=== PATIENT | male | born 1940 | race Caucasian/White ===

== ENCOUNTER 2017-04-01 10:55 | Emergency (ER) | payer OTHER, BC ==
[2017-04-01 11:02] VITALS: BP 131/59; PULSE 60; TEMP 97.6; BMI 24.0
[2017-04-01] MEDS ORDERED: KETOROLAC TROMETHAMINE 30 MG/1 ML VIAL IM ONE (11:33)
--- NOTE | 2017-04-01 11:38 | PDOC ---
History of Present Illness - General Chief Complaint: Injury Stated Complaint: FALL/BACK PAIN Time Seen by Provider: 04/01/17 11:18 History Source: Patient Exam Limitations: No Limitations - History of Present Illness Initial Comments: 04/01/17 11:40 This 76-year-old male past medical history of hypertension, prostate CA status post seeds, a flutter who presents to the emergency department with back pain status post slip and fall down 4 wooden steps on 03/31/17. Patient states she was walking down the steps into his basement with some now on the sole issue. While fpc down the steps he slipped and fell feetfirst landing on his back striking the stairs across both shoulders and midway down the back. Patient states he then slid down 3-4 steps before stopping himself before completing the entire flight of stairs. Patient states she was able to stand up and walk immediately after the fall. He states that overnight the pain has gotten worse in his right shoulder, upper back, and lower back. He denies any numbness or tingling to extremities, genitalia or rectum. Denies any urinary or fecal incontinence. Patient does report weakness in his right hand and decreased range of motion of his right shoulder. Patient has minimal pain in his left shoulder but has full range of motion. Denies any fevers, chills, chest pain, shortness of breath, nausea, vomiting. Occurred: reports: yesterday Past History - Past Medical History Allergies/Adverse Reactions: Allergies Allergy/AdvReac Type Severity Reaction Status Date / Time No Known Allergies Allergy Verified 04/01/17 11:02 Home Medications: Ambulatory Orders Amlodipine Besylate [Norvasc -] 5 mg PO DAILY 04/01/17 Apixaban [Eliquis] 5 mg PO BID 04/01/17 Atorvastatin Ca [Lipitor] 10 mg PO HS 04/01/17 Chlorthalidone 12.5 mg PO DAILY 04/01/17 Losartan Potassium 50 mg PO DAILY 04/01/17 Metoprolol Succinate 25 mg PO DAILY 04/01/17 Oxycodone HCl 5 mg PO Q6H PRN #15 tablet MDD 4 04/01/17 Tamsulosin HCl [Flomax] 0.4 mg PO DAILY 04/01/17 Cancer: Yes (PROSTATE) COPD: No HTN: Yes Hypercholesterolemia: Yes - Suicide/Smoking/Psychosocial Hx Smoking History: Never smoked Hx Alcohol Use: Yes (SOCIAL) Drug/Substance Use Hx: No Substance Use Type: None Review of Systems - Review of Systems Is the patient limited Romanian proficient: No Constitutional: No: Symptoms Reported HEENTM: No: Symptoms Reported Respiratory: No: Symptoms reported Cardiac (ROS): No: Symptoms Reported ABD/GI: No: Symptoms Reported : No: Symptoms Reported Musculoskeletal: Yes: See HPI Integumentary: No: Symptoms Reported Neurological: No: Symptoms reported *Physical Exam - Vital Signs Last Vital Signs Temp Pulse Resp BP Pulse Ox 97.6 F 60 20 131/59 99 04/01/17 10:58 04/01/17 10:58 04/01/17 10:58 04/01/17 10:58 04/01/17 10:58 - Physical Exam General Appearance: No: Apparent Distress HEENT: positive: Normal ENT Inspection, Normal Voice, TMs Normal Neck: positive: Trachea midline, Supple Respiratory/Chest: positive: Lungs Clear, Normal Breath Sounds. negative: Chest Tender, Respiratory Distress, Accessory Muscle Use Cardiovascular: positive: Regular Rhythm, Regular Rate, S1, S2. negative: Edema Gastrointestinal/Abdominal: positive: Normal Bowel Sounds, Soft. negative: Tender Musculoskeletal: positive: Normal Inspection, CVA Tenderness (R) Extremity: positive: Normal Capillary Refill, Normal Inspection. negative: Normal Range of Motion (right shoulder) Integumentary: positive: Normal Color, Dry, Warm Neurologic: positive: guide delegate II-XII NML intact, Fully Oriented, Alert, Normal Mood/ Affect, Normal Response. negative: Motor Strength 5/5 (3/5 strength right contract accountant) ED Treatment Course - LABORATORY CBC & Chemistry Diagram: 04/01/17 12:15 04/01/17 12:15 Medical Decision Making - Medical Decision Making 04/01/17 11:44 A/P: This 76-year-old male past medical history of hypertension, prostate CA status post seeds, a flutter who presents to the emergency department with back pain status post slip and fall down 4 wooden steps on 03/31/17. Patient states she was walking down the steps into his basement with some now on the sole issue. While fpc down the steps he slipped and fell feetfirst landing on his back striking the stairs across both shoulders and midway down the back. Patient states he then slid down 3-4 steps before stopping himself before completing the entire flight of stairs. Patient states she was able to stand up and walk immediately after the fall. He states that overnight the pain has gotten worse in his right shoulder, upper back, and lower back. He denies any numbness or tingling to extremities, genitalia or rectum. Denies any urinary or fecal incontinence. Patient does report weakness in his right hand and decreased range of motion of his right shoulder. Patient has minimal pain in his left shoulder but has full range of motion. Denies any fevers, chills, chest pain, shortness of breath, nausea, vomiting, head trauma or loss of consciousness. A& O 3. Examination of the temporal membranes is within normal limits. No septal hematomas. There is no evidence of trauma to the head. Cranial nerves 2 through 12 grossly intact. Gait steady without ataxia. Lungs clear to auscultation bilaterally. RRR. S1 and S2 present. No and,, G. Palpation of the spine reveals no bony tenderness or deformity or step off. Patient with tenderness over his right flank. Decreased range of motion to the right shoulder able to range further passively. Differential diagnosis include peritoneal bleed, Musculo-skeletal pain, fractures of spine, scapula, or shoulder area Given the patient is taking anticoagulant therapy as result of his a flutter I will perform a CAT scan of the abdomen with contrast to evaluate for retroperitoneal bleed. I'll perform x-rays of the patient's right shoulder. I' ll place an IV collect CBC, BMP and give the patient 30 mg of Toradol IV push. I will transfer patient to the main emergency department for continued evaluation. Sign out given to MD Villegas. *DC/Admit/Observation/Transfer Diagnosis at time of Disposition: Elevated serum creatinine Scapula fracture Qualifiers: Encounter type: initial encounter Scapula location: coracoid process Fracture type: closed Fracture alignment: nondisplaced Laterality: right Qualified Code(s ): S42.134A - Nondisplaced fracture of coracoid process, right shoulder, initial encounter for closed fracture - Discharge Dispostion Disposition: HOME Condition at time of disposition: Stable - Prescriptions Prescriptions: Oxycodone HCl 5 mg PO Q6H PRN #15 tablet MDD 4 PRN Reason: Pain - Referrals Referrals: STAFF,NOT ON [Primary Care Provider] - - Patient Instructions Printed Discharge Instructions: How to Use a Sling, DI for Shoulder Fracture Additional Instructions: You have a scapula fracture. Wear the sling. 650 mg tyelnol every 4 hours as needed for pain. For additional relief, you may take a tablet of oxycodone 5 mg every 6 to 8 hours as needed. Please make an appointment with your orthopedist. You may ice as needed for comfort. Your kidney function is elevated. Cr 1.8. Please let your doctor know and follow up - Post Discharge Activity
[2017-04-01] MEDS ORDERED: KETOROLAC TROMETHAMINE 30 MG/1 ML VIAL ONE (12:11)
--- NOTE | 2017-04-01 12:26 | PDOC ---
*Physical Exam - Vital Signs Last Vital Signs Temp Pulse Resp BP Pulse Ox 97.6 F 60 20 131/59 99 04/01/17 10:58 04/01/17 10:58 04/01/17 10:58 04/01/17 10:58 04/01/17 10:58 ED Treatment Course - LABORATORY CBC & Chemistry Diagram: 04/01/17 12:15 04/01/17 12:15 - Medications Given in the ED: ED Medications Discontinued Medications Generic Name Dose Route Start Last Admin Trade Name Raheem PRN Reason Stop Dose Admin Ketorolac Tromethamine 30 mg 04/01/17 11:33 04/01/17 12:14 Toradol Injection - IM 04/01/17 11:34 30 mg ONCE ONE Administration Medical Decision Making - Medical Decision Making 04/01/17 12:26 Pt seen by the Advanced Practice Provider under my direct supervision Pt interviewed and examined Ancillary studies reviewed I agree with plan as outlined by the Advanced Practice Provider MARIANO Harkins 04/01/17 15:34 Patient was signed out to me for mechanical fall. Patient had a negative right shoulder x-ray but persistent right shoulder pain. CAT scan the abdomen pelvis and right shoulder was obtained. Abdomen pelvis demonstrate no bleeding but the right shoulder CAT scan demonstrated a small scapular fracture. The patient was subsequently placed in a sling. Blood work was reviewed and demonstrated creatinine 1.8. Patient reports that he has known history of prior kidney disease when he was on hydrochlorothiazide that resolved when he was pulled off the medication. However, the patient's creatinine is now elevated. I advised patient that he will need to take copy of his reports every into his doctor regards to his kidney function. Patient states that he will. Patient given a copy of the CD of his CAT scans and x-rays and the patient states to follow-up with his orthopedist at [facility]. I discussed the physical exam findings, ancillary test results and final diagnoses with the patient. I answered all of the patient's questions. The patient was satisfied with the care received and felt comfortable with the discharge plan and treatment plan. The patient will call their primary care physician within 24 hours to arrange follow-up and will return to the Emergency Department with any new, persistant or worsening symptoms. *DC/Admit/Observation/Transfer Diagnosis at time of Disposition: Elevated serum creatinine Scapula fracture Qualifiers: Encounter type: initial encounter Scapula location: coracoid process Fracture type: closed Fracture alignment: nondisplaced Laterality: right Qualified Code(s ): S42.134A - Nondisplaced fracture of coracoid process, right shoulder, initial encounter for closed fracture - Discharge Dispostion Disposition: HOME Condition at time of disposition: Stable Admit: No - Prescriptions Prescriptions: Oxycodone HCl 5 mg PO Q6H PRN #15 tablet MDD 4 PRN Reason: Pain - Referrals Referrals: STAFF,NOT ON [Primary Care Provider] - - Patient Instructions Printed Discharge Instructions: How to Use a Sling, DI for Shoulder Fracture Additional Instructions: You have a scapula fracture. Wear the sling. 650 mg tyelnol every 4 hours as needed for pain. For additional relief, you may take a tablet of oxycodone 5 mg every 6 to 8 hours as needed. Please make an appointment with your orthopedist. You may ice as needed for comfort. Your kidney function is elevated. Cr 1.8. Please let your doctor know and follow up - Post Discharge Activity
[2017-04-01 12:28] LABS: BASO % 0.3 % (0-2.0); EOS % 0.4 % (0-4.5); HEMATOCRIT 43.4 % (35.4-49); HEMOGLOBIN 14.5 GM/dL (11.7-16.9); LYMPH % 10.9 % (8-40); MCH 29.3 pg (25.7-33.7); MCHC 33.4 g/dl (32.0-35.9); MEAN CELL VOLUME 87.7 fl (80-96); MEAN PLT VOLUME 7.3 fl (7.5-11.1); NEUT % 78.4 % (42.8-82.8); PLATELET COUNT 373 K/MM3 (134-434); RBC 4.95 M/mm3 (4.00-5.60); RDW 13.6 % (11.9-15.9)
[2017-04-01 12:40] LABS: ANION GAP 9 (8-16); BLOOD UREA NITROGEN 27 mg/dL (7-18); CALCIUM 8.6 mg/dL (8.5-10.1); CHLORIDE 104 mmol/L (98-107); CO2 25 mmol/L (21-32); CREATININE 1.8 mg/dL (0.7-1.3); GLUCOSE,RANDOM 134 mg/dL (74-106); POTASSIUM 4.1 mmol/L (3.5-5.1); SODIUM 138 mmol/L (136-145)
== END 2017-04-01 15:49 | disposition home or self-care (01) ==
LOC: JER 10:55 → JERFT 10:55 → JER 15:49
PROC: 3E0233Z Introduction of Anti-inflammatory into Muscle, Percutaneous Approach (ICD-10-PCS; principal; 2017-04-01)
DX: S42.134A Nondisplaced fracture of coracoid process, right shoulder, initial encounter for closed fracture (principal); W10.8XXA Fall (on) (from) other stairs and steps, initial encounter; Y93.89 Activity, other specified; Y92.018 Other place in single-family (private) house as the place of occurrence of the external cause; Y99.8 Other external cause status; I48.92 Unspecified atrial flutter; Z79.01 Long term (current) use of anticoagulants; I10 Essential (primary) hypertension; E78.00 Pure hypercholesterolemia, unspecified; Z85.46 Personal history of malignant neoplasm of prostate
CPT/HCPCS: 36415; 73030-TC-RT; 73200-TC-RT; 74176-TC; 80048; 85025; 96372; 99282-25

== ENCOUNTER 2018-02-10 12:34 | Observation (INO) | payer OTHER, BC ==
[2018-02-10 12:41] VITALS: BMI 22.6
--- NOTE | 2018-02-10 13:45 | PDOC ---
History of Present Illness - General Chief Complaint: Pain Stated Complaint: LT ELBOW PAIN Time Seen by Provider: 02/10/18 12:53 History Source: Patient Exam Limitations: No Limitations - History of Present Illness Initial Comments: 02/10/18 13:58 77 yo M with a hx of atrial fibrillation on eliquis (recently DC'd amiodarone on 01/30/2018 2/2 pulmonary toxicity), HTN, arthritis, and psoriasis presents to the emergency department due to atraumatic left elbow swelling with onset at 7pm yesterday. Per the patient, he states he was sitting at dinner and noticed a "golf ball size" mass on his left elbow that was painful to the touch and worsened with elbow extension. Denies traumatic event prior to the event. He is followed by Dr. Sadler at [facility]. He is scheduled for an appointment this Sunday. Denies the following: fever, chills, nausea, vomiting, SOB, chest pain, palpitations, lightheadedness, dizziness, headaches, visual changes, abdominal pain, dysuria, hematuria, hematochezia, melena, and leg pain/swelling. Pmhx: Refer to above Shx: Prostate biopsy Meds: eliquis (july 2017 start date), atorvastatin, flomax, losartan Allergies: None Social: Denies tobacco, alcohol, and substance abuse Past History - Past Medical History Allergies/Adverse Reactions: Allergies Allergy/AdvReac Type Severity Reaction Status Date / Time No Known Allergies Allergy Verified 02/10/18 12:40 Home Medications: Ambulatory Orders Apixaban [Eliquis] 5 mg PO BID 04/01/17 Atorvastatin Ca [Lipitor] 10 mg PO DAILY 04/01/17 Losartan Potassium 50 mg PO DAILY 04/01/17 Tamsulosin HCl [Flomax] 0.4 mg PO DAILY 04/01/17 Cancer: Yes (PROSTATE) COPD: No HTN: Yes Hypercholesterolemia: Yes - Suicide/Smoking/Psychosocial Hx Smoking History: Never smoked Hx Alcohol Use: Yes (SOCIAL) Drug/Substance Use Hx: No Substance Use Type: None Review of Systems - Review of Systems Able to Perform ROS?: Yes Is the patient limited Slovenian proficient: No Constitutional: No: Chills, Diaphoresis, Fever, Unexplained wgt Loss HEENTM: No: Eye Pain, Nose Pain, Throat Pain, Mouth Pain Respiratory: No: Shortness of Breath, Hemoptysis Cardiac (ROS): No: Chest Pain, Lightheadedness, Palpitations, Syncope, Chest Tightness ABD/GI: No: Constipated, Diarrhea, Nausea, Rectal Bleeding, Vomiting, Tarry Stools : No: Burning, Dysuria, Hematuria Musculoskeletal: Yes: Joint Swelling (left elbow). No: Back Pain, Joint Pain, Neck Pain, Joint Stiffness Integumentary: Yes: Change in Color (dark red in left elbow). No: Rash Neurological: No: Headache, Numbness, Paresthesia, Tingling, Weakness Endocrine: No: Unexplained Weight Gain Hematologic/Lymphatic: No: Anemia *Physical Exam - Vital Signs Last Vital Signs Temp Pulse Resp BP Pulse Ox 97.8 F 121 H 20 134/81 98 02/10/18 12:35 02/10/18 12:35 02/10/18 12:35 02/10/18 12:35 02/10/18 12:35 - Physical Exam General Appearance: Yes: Nourished, Appropriately Dressed HEENT: positive: EOMI, ROQUE Neck: positive: Trachea midline. negative: Lymphadenopathy (R), Lymphadenopathy (L) Respiratory/Chest: positive: Lungs Clear, Normal Breath Sounds. negative: Chest Tender, Respiratory Distress, Accessory Muscle Use Cardiovascular: positive: S1, S2, Tachycardia, Irregularly Irregular. negative : Systolic Murmur Gastrointestinal/Abdominal: positive: Normal Bowel Sounds. negative: Tender Lymphatic: negative: Adenopathy Musculoskeletal: positive: Normal Inspection. negative: CVA Tenderness Extremity: positive: Normal Capillary Refill, Normal Range of Motion, Other ( swelling in the left elbow with dark red skin change. 2x2 cm without it being hot to the touch). negative: Tender Integumentary: positive: Normal Color, Dry, Warm Neurologic: positive: Fully Oriented, Alert, Normal Mood/Affect Heart Score/ECG Review - ECG Intrepretation Comment:: 02/10/18 14:15 12:45 pm EKG: atrial fibrillation without ST elevation or depression at rate of 108 bpm, QRS duration of 96 ms. QTc is 493 ms. Afib with RVR 12:47 pm EKG: atrial flutter with ventricular rate of 99 bpm, QRS duration 94 ms , QTc is [address] elevations or depressions noted. 3:26 pm EKG: sinus rhythm with 1st degree AV block. ventricular rate of 68 bpm, [place] of 218 ms, QRS duration of 104 ms, QTc is [address] elevations or depressions noted. ED Treatment Course - LABORATORY CBC & Chemistry Diagram: 02/10/18 14:04 02/10/18 14:12 Medical Decision Making - Medical Decision Making 02/10/18 14:07 77 yo M with a hx of atrial fibrillation on eliquis (recently DC'd amiodarone on 01/30/2018 2/2 pulmonary toxicity), HTN, arthritis, and psoriasis presents to the emergency department due to atraumatic left elbow swelling with onset at 7pm yesterday. Initial vitals: Initial Vital Signs Temp Pulse Resp BP Pulse Ox 97.8 F 121 H 20 134/81 98 02/10/18 12:35 02/10/18 12:35 02/10/18 12:35 02/10/18 12:35 02/10/18 12:35 Work up: Pt presents with atraumatic left elbow swelling with onset last night with decreased swelling today. It was painful with extension yesterday, but not today. He denies fever, chills, penetrating trauma to the area. on PE, his left elbow was dark red with approximately 2x2 cm fluctuate without erythema. ddx is bursitis vs hemorrhagic cyst. Unlikely to be septic joint given asymptomatic presentation and lack of fever. Incidentally, his HR was in the 120s with known atrial fibrillation without rate control medication. A call was placed to Dr. Cates his senior category manager who recommended to start 25 mg metoprolol and to see him in the office tomorrow. cbc, cmp, troponin, cxr, and left elbow xray was ordered. labs/imaging: Laboratory Tests 02/10/18 02/10/18 14:04 14:12 WBC 8.4 RBC 3.93 L Hgb 11.2 L Hct 34.3 L D MCV 87.4 MCH 28.5 MCHC 32.7 RDW 14.0 Plt Count 529 H D MPV 6.5 L D Absolute Neuts (auto) 5.6 Neutrophils % 67.5 Lymphocytes % 14.9 D Monocytes % 10.7 H Eosinophils % 5.4 H D Basophils % 1.5 D Nucleated RBC % 0 Sodium 138 Potassium 4.3 Chloride 106 Carbon Dioxide 26 Anion Gap 7 L BUN 33 H Creatinine 2.0 H Creat Clearance w eGFR 32.48 Random Glucose 80 Calcium 8.4 L Total Bilirubin 0.4 AST 24 ALT 33 Alkaline Phosphatase 106 Creatine Kinase 49 Troponin I 0.14 H Total Protein 6.0 L Albumin 2.6 L Troponin was elevated at 0.14 and creatinine at 2.0. Dr. Sadler was called back to update on results. Patient was reassessed and denies chest pain, SOB, or other symptoms. Will be admitted to obs tele. Dispo: Admit *DC/Admit/Observation/Transfer Diagnosis at time of Disposition: Elevated troponin - Discharge Dispostion Decision to Admit order: Yes - Referrals - Patient Instructions - Post Discharge Activity
[2018-02-10] MEDS ORDERED: METOPROLOL TARTRATE 25 MG TABLET (FP) PO ONE (13:48)
[2018-02-10] MEDS ORDERED: METOPROLOL TARTRATE 25 MG TABLET (FP) ONE (14:10)
--- NOTE | 2018-02-10 14:10 | PDOC ---
Attending Attestation - ED Attending Attestation I have performed the following: I have examined & evaluated the patient, The case was reviewed & discussed with the resident, I agree w/resident's findings & plan, Exceptions are as noted - HPI HPI: 02/10/18 14:05 77 yo male with h/o afib htn hld, psoriais and arthritis, here with c/o left elbow swelling. overall has been improving. no f/c no known trauma. does take blood thinner ( eliquis), able to extend arm without pain. noted blood , eccymosis over elbow. no other comlaints. no h/o gout. was recently taken off of his amiodarone for lung toxicity few weeks ago. - Physicial Exam PE: 02/10/18 14:07 awake alert lungs clear bilaterally heart irreg reg, no mrg. abd soft nt nd. left elbow eccymosis, bursitis noted. no pain with flex/ ext. no erythema no warmth. shoulder wrist nt from. ext wwp no edema. - Medical Decision Making 02/10/18 14:08 olecrenon bursitis no signs of current infection, able to fully range no pain. plan xray r/o underlying bony injury. pt in afib with rvr, will r/o labs or electrolyte abnormality ekg trop. rvr resolved, d/w psychiatric np. recommend starting metoprolol 25 bid . HR improved to 70's. given first dose in ed. awaiting labs and xray. Heart Score/ECG Review #1 General ECG Interpretation: Normal Rate, Normal Intervals, No acute ischemic changes Compared to previous ECG there are: Other (aflutter variable bloc rate [address] elevation or depression.)
[2018-02-10 14:30] LABS: BASO % 1.5 % (0-2.0); EOS % 5.4 % (0-4.5); HEMATOCRIT 34.3 % (35.4-49); HEMOGLOBIN 11.2 GM/dL (11.7-16.9); LYMPH % 14.9 % (8-40); MCH 28.5 pg (25.7-33.7); MCHC 32.7 g/dl (32.0-35.9); MEAN CELL VOLUME 87.4 fl (80-96); MEAN PLT VOLUME 6.5 fl (7.5-11.1); MONO % 10.7 % (3.8-10.2); NEUT % 67.5 % (42.8-82.8); PLATELET COUNT 529 K/MM3 (134-434); RBC 3.93 M/mm3 (4.00-5.60); WHITE BLOOD COUNT 8.4 K/mm3 (4.0-10.0)
[2018-02-10 14:42] LABS: ALBUMIN 2.6 g/dl (3.4-5.0); ALK PHOS 106 U/L (45-117); ANION GAP 7 MMOL/L (8-16); BILIRUBIN,TOTAL 0.4 mg/dL (0.2-1); BLOOD UREA NITROGEN 33 mg/dL (7-18); CALCIUM 8.4 mg/dL (8.5-10.1); CHLORIDE 106 mmol/L (98-107); CO2 26 mmol/L (21-32); GLUCOSE,RANDOM 80 mg/dL (74-106); POTASSIUM 4.3 mmol/L (3.5-5.1); SGOT/AST 24 U/L (15-37); SGPT/ALT 33 U/L (13-61); SODIUM 138 mmol/L (136-145)
[2018-02-10] MEDS ORDERED: ASPIRIN 81 MG CHEWABLE TABLETS PO ONE (15:05)
[2018-02-10] MEDS ORDERED: ASPIRIN 81 MG CHEWABLE TABLETS ONE (15:14)
[2018-02-10] MEDS ORDERED: ACETAMINOPHEN 325 MG TABLET (FP) PO PRN (16:33)
--- NOTE | 2018-02-10 16:41 | HP ---
Admitting History and Physical - Admission Chief Complaint: My elbow History of Present Illness: Mr Liang is a very pleasant 77 year old male who comes in secondary to his swollen L elbow. He noted last night the his elbow was swollen and bruised. He does not recall any trauma to it and it is not painful. He says it is better today but he came in to make sure it was ok. However while here he was noted to have atrial fibrillation with rvr (HR in the 120s) and was found to have an elevated troponin. He says he is feeling well and is without major complaint. He says he was originally on amiodarone for his atrial fibrillation but began to develop dyspnea on exertion and it was stopped 2 weeks ago after he was also noted to have changes on the chest x-ray. He says the dyspnea is minor and slightly better. Otherwise he denies fevers, chills, lightheadedness, dizziness , passing out, chest pain or pressure, coughing, nausea, vomiting, diarrhea, constipation, difficulty or pain on urination, or swelling. History Source: Patient Limitations to Obtaining History: No Limitations - Past Medical History Cardiovascular: Yes: AFIB, HTN, Hyperlipdemia Renal/: Yes: Cancer (prostate) Musculoskeletal: Yes: Osteoarthritis Rheumatology: Yes: Other (psoriasis) - Past Surgical History Additional Past Surgical History: rotator cuff repair - Smoking History Smoking history: Never smoked - Alcohol/Substance Use Hx Alcohol Use: Yes (SOCIAL) History of Substance Use: reports: None - Social History Usual Living Arrangement: Yes: With Spouse ADL: Independent History of Recent Travel: No Home Medications - Allergies Allergies/Adverse Reactions: Allergies Allergy/AdvReac Type Severity Reaction Status Date / Time No Known Allergies Allergy Verified 02/10/18 12:40 - Home Medications Home Medications: Ambulatory Orders Amlodipine Besylate [Norvasc -] 5 mg PO DAILY 04/01/17 Apixaban [Eliquis] 5 mg PO BID 04/01/17 Atorvastatin Ca [Lipitor] 10 mg PO HS 04/01/17 Chlorthalidone 12.5 mg PO DAILY 04/01/17 Losartan Potassium 50 mg PO DAILY 04/01/17 Metoprolol Succinate 25 mg PO DAILY 04/01/17 Oxycodone HCl 5 mg PO Q6H PRN #15 tablet MDD 4 04/01/17 Tamsulosin HCl [Flomax] 0.4 mg PO DAILY 04/01/17 Family Disease History - Family Disease History Family Disease History: Other: Father (ETOH), Mother (alzheimers) Review of Systems Findings/Remarks: Full review of systems obtained, as per HPI and otherwise negative Physical Examination Vital Signs: Vital Signs Temperature 36.6 C 02/10/18 12:35 Pulse Rate 72 02/10/18 15:33 Respiratory Rate 20 02/10/18 15:33 Blood Pressure 142/75 02/10/18 15:33 O2 Sat by Pulse Oximetry (%) 98 02/10/18 12:35 Constitutional: Yes: Well Nourished, No Distress, Calm Eyes: Yes: Conjunctiva Clear, EOM Intact, PERRL HENT: Yes: Atraumatic, Normocephalic Cardiovascular: Yes: Regular Rate and Rhythm. No: Gallop, Murmur, Rub Respiratory: Yes: Regular, CTA Bilaterally. No: Rales, Rhonchi, Wheezes Gastrointestinal: Yes: Normal Bowel Sounds, Soft. No: Distention, Tenderness Extremities: Yes: Other (hematoma on L elbow) Edema: No Labs: CBC, BMP 02/10/18 14:04 02/10/18 14:12 Imaging - Results Chest X-ray: Image Reviewed Problem List - Problems (1) Elevated troponin I level Assessment/Plan: -suspect stress induced from rvr and decreased clearance with CKD -admit to telemetry observation -no other signs or symptoms of ACS -cardiac enzymes x3 -if unchanged or improved, d/c in am Code(s): R74.8 - ABNORMAL LEVELS OF OTHER SERUM ENZYMES (2) CKD (chronic kidney disease) Assessment/Plan: -suspect at baseline -monitor Code(s): N18.9 - CHRONIC KIDNEY DISEASE, UNSPECIFIED Qualifiers: Chronic kidney disease stage: stage 3 (moderate) Qualified Code(s): N18.3 - Chronic kidney disease, stage 3 (moderate) (3) HTN (hypertension) Assessment/Plan: -continue losartan Code(s): I10 - ESSENTIAL (PRIMARY) HYPERTENSION (4) Atrial fibrillation with RVR Assessment/Plan: -in sinus rhythm after receiving metoprolol -continue metoprolol -continue eliquis Code(s): I48.91 - UNSPECIFIED ATRIAL FIBRILLATION (5) HLD (hyperlipidemia) Assessment/Plan: -continue atorvastatin Code(s): E78.5 - HYPERLIPIDEMIA, UNSPECIFIED (6) Traumatic hematoma of left elbow Assessment/Plan: -monitor Code(s): S50.02XA - CONTUSION OF LEFT ELBOW, INITIAL ENCOUNTER Qualifiers: Encounter type: initial encounter Qualified Code(s): S50.02XA - Contusion of left elbow, initial encounter
[2018-02-10] MEDS ORDERED: ATORVASTATIN CA 10 MG TABLET (FP) PO SCH (22:00)
[2018-02-10] MEDS: APIXABAN 5 MG TABLET PO SCH (22:21)
[2018-02-11 05:53] LABS: BASO % 0.3 % (0-2.0); EOS % 7.3 % (0-4.5); HEMOGLOBIN 12.1 GM/dL (11.7-16.9); LYMPH % 14.4 % (8-40); MCH 28.6 pg (25.7-33.7); MCHC 32.7 g/dl (32.0-35.9); MEAN CELL VOLUME 87.3 fl (80-96); MEAN PLT VOLUME 6.7 fl (7.5-11.1); MONO % 11.6 % (3.8-10.2); NEUT % 66.4 % (42.8-82.8); PLATELET COUNT 522 K/MM3 (134-434); RBC 4.24 M/mm3 (4.00-5.60); RDW 14.1 % (11.9-15.9)
[2018-02-11 06:35] LABS: ANION GAP 8 MMOL/L (8-16); BLOOD UREA NITROGEN 30 mg/dL (7-18); CALCIUM 8.3 mg/dL (8.5-10.1); CHLORIDE 106 mmol/L (98-107); CO2 24 mmol/L (21-32); CREATININE 1.8 mg/dL (0.55-1.3); GLUCOSE,RANDOM 77 mg/dL (74-106); MAGNESIUM 1.8 mg/dL (1.8-2.4); PHOSPHOROUS 4.5 mg/dL (2.5-4.9); POTASSIUM 4.4 mmol/L (3.5-5.1); SODIUM 139 mmol/L (136-145)
[2018-02-11 08:09] VITALS: TEMP 97.9
[2018-02-11] MEDS ORDERED: APIXABAN 5 MG TABLET PO ONE (08:15)
[2018-02-11] MEDS ORDERED: TAMSULOSIN HCL 0.4 MG CAP ONE (08:15)
[2018-02-11] MEDS ORDERED: TAMSULOSIN HCL 0.4 MG CAP PO SCH (08:30)
[2018-02-11] MEDS: APIXABAN 5 MG TABLET PO SCH (09:01)
[2018-02-11] MEDS ORDERED: metoPROLOL SUCCINATE 25 MG TAB.SR.24H (FP) PO SCH (10:00)
[2018-02-11] MEDS ORDERED: LOSARTAN POTASSIUM 50 MG TABLET (FP) PO SCH (10:00)
--- NOTE | 2018-02-11 10:47 | EKG ---
Test Reason : Blood Pressure : / mmHG Vent. Rate : 068 BPM Atrial Rate : 068 BPM P-R Int : 218 ms QRS Dur : 104 ms QT Int : 444 ms P-R-T Axes : 070 -22 054 degrees QTc Int : 472 ms SINUS RHYTHM WITH 1ST DEGREE A-V BLOCK OTHERWISE NORMAL ECG WHEN COMPARED WITH ECG OF 10-FEB-2018 12:47, SINUS RHYTHM HAS REPLACED ATRIAL FLUTTER Confirmed by STEFAN RIVERA, TRIP ([id number]) on 02/11/2018 10:47:02 AM Referred By: Confirmed By:TRIP AVILES MD
--- NOTE | 2018-02-11 10:48 | EKG ---
Test Reason : Blood Pressure : / mmHG Vent. Rate : 099 BPM Atrial Rate : 242 BPM P-R Int : 000 ms QRS Dur : 094 ms QT Int : 364 ms P-R-T Axes : 000 -06 052 degrees QTc Int : 467 ms ATRIAL FLUTTER WITH VARIABLE A-V BLOCK WITH PREMATURE VENTRICULAR OR ABERRANTLY CONDUCTED COMPLEXES NONSPECIFIC ST ABNORMALITY ABNORMAL ECG NO PREVIOUS ECGS AVAILABLE Confirmed by TRIP AVILES MD ([id number]) on 02/11/2018 10:48:36 AM Referred By: Confirmed By:TRIP AVILES MD
--- NOTE | 2018-02-11 11:13 | PN ---
Progress Note, Physician - Current Medication List Current Medications: Active Medications Acetaminophen (Tylenol -) 650 mg PO Q4H PRN PRN Reason: FEVER Apixaban (Eliquis -) 5 mg PO BID [facility] Last Admin: 02/11/18 09:01 Dose: 5 mg Atorvastatin Calcium (Lipitor -) 10 mg PO HS [facility] Last Admin: 02/10/18 22:22 Dose: Not Given Losartan Potassium (Cozaar -) 50 mg PO DAILY [facility] Last Admin: 02/11/18 09:01 Dose: 50 mg Metoprolol Succinate (Toprol Xl -) 25 mg PO DAILY [facility] Last Admin: 02/11/18 09:01 Dose: 25 mg Tamsulosin HCl (Flomax -) 0.4 mg PO DAILY@0830 [facility] Last Admin: 02/11/18 08:23 Dose: 0.4 mg - Objective Vital Signs: Vital Signs Temperature 97.9 F 02/11/18 08:08 Pulse Rate 72 02/11/18 08:08 Respiratory Rate 20 02/11/18 08:08 Blood Pressure 147/78 02/11/18 08:08 O2 Sat by Pulse Oximetry (%) 99 02/11/18 08:08 Constitutional: Yes: Well Nourished, No Distress, Calm Eyes: Yes: Conjunctiva Clear, EOM Intact, PERRL HENT: Yes: Atraumatic, Normocephalic Cardiovascular: Yes: Regular Rate and Rhythm. No: Gallop, Murmur, Rub Respiratory: Yes: Regular, CTA Bilaterally. No: Rales, Rhonchi, Wheezes Gastrointestinal: Yes: Normal Bowel Sounds, Soft. No: Distention, Tenderness Extremities: Yes: Other (hematoma on L elbow) Edema: No Labs: CBC, BMP 02/11/18 05:00 02/11/18 06:00 Problem List - Problems (1) Atrial fibrillation with RVR Code(s): I48.91 - UNSPECIFIED ATRIAL FIBRILLATION (2) CKD (chronic kidney disease) Code(s): N18.9 - CHRONIC KIDNEY DISEASE, UNSPECIFIED Qualifiers: Chronic kidney disease stage: stage 3 (moderate) Qualified Code(s): N18.3 - Chronic kidney disease, stage 3 (moderate) (3) Elevated troponin I level Code(s): R74.8 - ABNORMAL LEVELS OF OTHER SERUM ENZYMES (4) HTN (hypertension) Code(s): I10 - ESSENTIAL (PRIMARY) HYPERTENSION (5) Traumatic hematoma of left elbow Code(s): S50.02XA - CONTUSION OF LEFT ELBOW, INITIAL ENCOUNTER Qualifiers: Encounter type: initial encounter Qualified Code(s): S50.02XA - Contusion of left elbow, initial encounter
--- NOTE | 2018-02-11 14:05 | DS ---
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 Labs: CBC, BMP 02/11/18 05:00 02/11/18 06:00 CBC,CMP WBC 9.0 K/mm3 (4.0-10.0) 02/11/18 05:00 RBC 4.24 M/mm3 (4.00-5.60) 02/11/18 05:00 Hgb 12.1 GM/dL (11.7-16.9) 02/11/18 05:00 Hct 37.0 % (35.4-49) 02/11/18 05:00 MCV 87.3 fl (80-96) 02/11/18 05:00 MCH 28.6 pg (25.7-33.7) 02/11/18 05:00 MCHC 32.7 g/dl (32.0-35.9) 02/11/18 05:00 RDW 14.1 % (11.9-15.9) 02/11/18 05:00 Plt Count 522 K/MM3 (134-434) H 02/11/18 05:00 MPV 6.7 fl (7.5-11.1) L 02/11/18 05:00 Absolute Neuts (auto) 6.0 K/mm3 (1.5-8.0) 02/11/18 05:00 Neutrophils % 66.4 % (42.8-82.8) 02/11/18 05:00 Lymphocytes % 14.4 % (8-40) 02/11/18 05:00 Monocytes % 11.6 % (3.8-10.2) H 02/11/18 05:00 Eosinophils % 7.3 % (0-4.5) H 02/11/18 05:00 Basophils % 0.3 % (0-2.0) 02/11/18 05:00 Nucleated RBC % 0 % (0-0) 02/11/18 05:00 Sodium 139 mmol/L (136-145) 02/11/18 06:00 Potassium 4.4 mmol/L (3.5-5.1) 02/11/18 06:00 Chloride 106 mmol/L (98-107) 02/11/18 06:00 Carbon Dioxide 24 mmol/L (21-32) 02/11/18 06:00 Anion Gap 8 MMOL/L (8-16) 02/11/18 06:00 BUN 30 mg/dL (7-18) H 02/11/18 06:00 Creatinine 1.8 mg/dL (0.55-1.3) H 02/11/18 06:00 Creat Clearance w eGFR 36.67 (>60) 02/11/18 06:00 Random Glucose 77 mg/dL (74-106) 02/11/18 06:00 Calcium 8.3 mg/dL (8.5-10.1) L 02/11/18 06:00 Phosphorus 4.5 mg/dL (2.5-4.9) 02/11/18 06:00 Magnesium 1.8 mg/dL (1.8-2.4) 02/11/18 06:00 Total Bilirubin 0.4 mg/dL (0.2-1) 02/10/18 14:12 AST 24 U/L (15-37) 02/10/18 14:12 ALT 33 U/L (13-61) 02/10/18 14:12 Alkaline Phosphatase 106 U/L (45-117) 02/10/18 14:12 Creatine Kinase 35 IU/L (26-308) 02/11/18 06:00 Troponin I 0.06 ng/ml (0.00-0.05) H 02/11/18 06:00 Total Protein 6.0 g/dl (6.4-8.2) L 02/10/18 14:12 Albumin 2.6 g/dl (3.4-5.0) L 02/10/18 14:12 EKG: On admission; Afltter at 99 variable block few PVCs Rpt NSR 68 I HB 218 QTC [address] T changes Troponin I: 0.14 trended 0.06 Left Elbow no fracture dislocation mild soft tissue swelling. Discharge Summary Reason For Visit: ELEVATED TROPONIN LEVEL, SERUM CREATINE RAISED Current Active Problems Atrial fibrillation with RVR (Acute) CKD (chronic kidney disease) (Acute) Elevated troponin (Acute) Elevated troponin I level (Acute) HLD (hyperlipidemia) (Acute) HTN (hypertension) (Acute) Traumatic hematoma of left elbow (Acute) Hospital Course: Mr Liang is a very pleasant 77 year old male who comes in secondary to his swollen L elbow. He noted last night the his elbow was swollen and bruised. He does not recall any trauma to it and it is not painful. He says it is better today but he came in to make sure it was ok. However while here he was noted to have atrial fibrillation with rvr (HR in the 120s) and was found to have an elevated troponin 0.14. He says he is feeling well and is without major complaint. He says he was originally on amiodarone for his atrial fibrillation but began to develop dyspnea on exertion and it was stopped 2 weeks ago after he was also noted to have changes on the chest x-ray. He says the dyspnea is minor and slightly better. 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 at [facility] and discussed about patient health status and reviewed all labs agreed with plan of discharge without Cardiology consult as patient had a stress test that was normal, we educated patient to consult an orthopaedics as out patient patient and visit ED if any worsening pain, chest pain, fever, SOB or Palpitation, EKG Today; HR 62 NSR WI 206 QTC 4777 R Wave axis 1, NO St T changes Time Spent 38 minutes Condition: Stable - Instructions Diet, Activity, Other Instructions: Low Salt ow cholstrol Cold compresses Left Elbow Visit ED if worsening pain, swelling discharge Left Elbow or any c/o fever, chills, chest pain, SOB or Palpitation. Referrals: Allan Sadler MD [Non Staff, Medical] - 02/12/18 Disposition: HOME - Home Medications Comprehensive Discharge Medication List: Ambulatory Orders Apixaban [Eliquis] 5 mg PO BID 04/01/17 Atorvastatin Ca [Lipitor] 10 mg PO DAILY 04/01/17 Losartan Potassium 50 mg PO DAILY 04/01/17 Tamsulosin HCl [Flomax] 0.4 mg PO DAILY 04/01/17 Acetaminophen [Tylenol .Regular Strength -] 650 mg PO Q4H PRN #30 tablet Losartan Potassium [Cozaar -] 50 mg PO DAILY #0 tablet 02/11/18 Metoprolol Succinate [Toprol XL -] 25 mg PO DAILY #30 tab.sr.24h 02/11/18
[2018-02-11 14:27] VITALS: BP 122/64; PULSE 78
--- NOTE | 2018-02-12 16:32 | EKG ---
Test Reason : Blood Pressure : / mmHG Vent. Rate : 062 BPM Atrial Rate : 062 BPM P-R Int : 206 ms QRS Dur : 100 ms QT Int : 470 ms P-R-T Axes : 071 001 055 degrees QTc Int : 477 ms SINUS RHYTHM WITH OCCASIONAL PREMATURE VENTRICULAR COMPLEXES POSSIBLE LEFT ATRIAL ENLARGEMENT BORDERLINE ECG WHEN COMPARED WITH ECG OF 10-FEB-2018 15:26, PREMATURE VENTRICULAR COMPLEXES ARE NOW PRESENT Confirmed by MD Waldemar, Guanakito ([id number]) on 02/12/2018 4:32:28 PM Referred By: PEPITO HERNANDEZ Confirmed By:Guanakito Medeiros MD
== END 2018-02-11 14:30 | disposition home or self-care (01) ==
LOC: JER 12:34 → JERBED 15:17
PROVIDERS: ADMIT Internal Medicine; ATTEND Internal Medicine
DX: R77.8 Other specified abnormalities of plasma proteins (principal); R79.89 Other specified abnormal findings of blood chemistry; I12.9 Hypertensive chronic kidney disease with stage 1 through stage 4 chronic kidney disease, or unspecified chronic kidney disease; N18.3 Chronic kidney disease, stage 3 (moderate); I48.91 Unspecified atrial fibrillation; E78.5 Hyperlipidemia, unspecified; M19.90 Unspecified osteoarthritis, unspecified site; L40.9 Psoriasis, unspecified; Z85.46 Personal history of malignant neoplasm of prostate; Z79.01 Long term (current) use of anticoagulants; S50.02XA Contusion of left elbow, initial encounter; X58.XXXA Exposure to other specified factors, initial encounter; Y93.9 Activity, unspecified; Y92.9 Unspecified place or not applicable
CPT/HCPCS: 36415; 71046-TC-FY; 73070-TC-LT-FY; 80048; 80053; 82550; 83735; 84100; 84484; 85025; 93005; 93010; 99285-25; G0378

== ENCOUNTER 2019-12-03 12:36 | Emergency (ER) | payer OTHER, BC ==
[2019-12-03 12:42] VITALS: BMI 24.4
--- NOTE | 2019-12-03 14:13 | PDOC ---
History of Present Illness - General Chief Complaint: Injury Stated Complaint: FALL/RT EYE INJURY Time Seen by Provider: 12/03/19 14:08 History Source: Patient Exam Limitations: No Limitations - History of Present Illness Initial Comments: 12/03/19 14:09 HPI: 78yo M pmh atrial fibrillation on eliquis (DC'd amiodarone on 01/30/2018 2/2 pulmonary toxicity), HTN, arthritis, and psoriasis presents to the emergency department with right eye injury s/p mechanical fall. Patient was turning around in his kitchen when he got tripped up on his clog and fell striking his head (lateral to right eye) on the step up into the living area. Denies LOC, denies headache, nausea, vomiting, ambulatory since, denying neck pain. Patient held his eliquis until after he could be evaluated in the ED. Absolutely denies any prodrome symptoms / syncope - reporting specifically a mechanical fall. Denies chest pain, SOB, fever, chills, nausea, vomiting, palpitations, lightheadedness, dizziness, headaches, visual changes, abdominal pain, dysuria, hematuria, hematochezia, melena, and leg pain/swelling. All: NKDA Meds: eliquis (july 2017 start date), atorvastatin, flomax, losartan PMH: As above PSH: Prostate biopsy SHx: Denies tobacco, alcohol, and illicits Past History - Travel History Traveled outside of the country in the last 30 days: No Close contact w/someone who was outside of country & ill: No - Medical History Allergies/Adverse Reactions: Allergies Allergy/AdvReac Type Severity Reaction Status Date / Time amiodarone Allergy Verified 12/03/19 12:43 Home Medications: Ambulatory Orders Apixaban [Eliquis] 5 mg PO BID 04/01/17 Atorvastatin Ca [Lipitor] 10 mg PO DAILY 04/01/17 Losartan Potassium 50 mg PO DAILY 04/01/17 Tamsulosin HCl [Flomax] 0.4 mg PO DAILY 04/01/17 Acetaminophen [Tylenol .Regular Strength -] 650 mg PO Q4H PRN #30 tablet 02/11/18 Losartan Potassium [Cozaar -] 50 mg PO DAILY #0 tablet 02/11/18 Metoprolol Succinate [Toprol XL -] 25 mg PO DAILY #30 tab.sr.24h 02/11/18 Cancer: Yes (PROSTATE. sqamous carcinoma) COPD: No HTN: Yes Hypercholesterolemia: Yes Other medical history: cataract - Psycho-Social/Smoking History Smoking History: Never smoked Have you smoked in the past 12 months: No - Substance Abuse Hx (Audit-C & DAST Scrn) How often the patient has a drink containing alcohol: Never Score: In Men: 4 or > Positive; In Women: 3 or > Positive: 0 Screen Result (Pos requires Nsg. Audit-10AR): Negative In the last yr the pt used illegal drug/Rx for NonMed reason: No Score: Yes response is considered Positive: 0 Screen Result (Positive result requires Nsg. DAST-10): Negative Review of Systems - Review of Systems Able to Perform ROS?: Yes Is the patient limited [place] proficient: Yes Constitutional: No: Chills, Fever, Weakness HEENTM: No: Eye Pain, Blurred Vision, Recent change in vision, Double Vision, Nose Congestion, Throat Pain Respiratory: No: Cough, Shortness of Breath Cardiac (ROS): No: Chest Pain, Edema, Irregular Heart Rate, Lightheadedness, Palpitations, Syncope, Chest Tightness ABD/GI: No: Nausea, Vomiting Musculoskeletal: No: Back Pain, Muscle Pain, Muscle Weakness, Neck Pain Integumentary: No: Bruising, Dryness, Erythema, Pruritus, Rash Neurological: No: Headache, Numbness, Tingling, Weakness Psychiatric: No: Stressors, Change in Appetite Endocrine: No: Increased Thirst, Increased Urine, Change in Weight Hematologic/Lymphatic: Yes: Easy Bleeding (on eliquis). No: Anemia, Blood Clots All Other Systems: Reviewed and Negative *Physical Exam - Vital Signs Last Vital Signs Temp Pulse Resp BP Pulse Ox 98.9 F 97 H 19 148/66 97 12/03/19 12:39 12/03/19 12:39 12/03/19 12:39 12/03/19 12:39 12/03/19 12:39 - Physical Exam 12/03/19 14:11 Vitals reviewed, mild HTN, otherwise AFHDS Medical Decision Making - Medical Decision Making 12/03/19 14:12 78yo M pmh atrial fibrillation on Eliquis (DC'd Amiodarone on 01/30/2018 2/2 pulmonary toxicity), HTN, arthritis, and psoriasis presents to the emergency department with right eye injury s/p mechanical fall. History notable for mechanical fall, no signs / symptoms of ICP elevation. Exam notable for A&Ox3 well appearing man, no signs of distress, stable vitals, non-tender hematoma lateral to left eye without proptosis or signs of entrapment. Will rule out fracture / acute bleed, no indication for labs at this point. - NCHCT, Facial bones, Orbits, Cervical spine - Pain control as needed Anticipated dispo: Home 12/03/19 16:17 - Imaging negative - Patient and comfortable with discharge - Stable, without pain Dispo: Home Discharge - Discharge Information Problems reviewed: Yes Clinical Impression/Diagnosis: Fall Qualifiers: Encounter type: initial encounter Qualified Code(s): W19.XXXA - Unspecified fall, initial encounter Traumatic hematoma of face Qualifiers: Encounter type: initial encounter Qualified Code(s): S00.83XA - Contusion of other part of head, initial encounter Condition: Stable Disposition: HOME - Admission No - Follow up/Referral - Patient Discharge Instructions Patient Printed Discharge Instructions: How to Prevent Falls Additional Instructions: You were seen and evaluated at [facility] following a fall. Your imaging was negative for fractures or bleeds. You may take over the counter pain medication such as Tylenol or Motrin for any related pain as directed on the package label. Follow up with your primary care doctor within 1 week for continued care and re- evaluation. Return to the ED for any new or concerning symptoms including but not limited to: Severe headache, nausea and vomiting, changes or pain with vision, difficulty walking, passing out or feeling like you may pass out. - Post Discharge Activity
--- NOTE | 2019-12-03 15:28 | PDOC ---
Documentation entered by Starla Waters SCRIBE, acting as scribe for Baljinder Garrison MD. Baljinder Garrison MD: This documentation has been prepared by the graceibeJt Ana, SCRIBE, under my direction and personally reviewed by me in its entirety. I confirm that the documentation accurately reflects all work, treatment, procedures, and medical decision making performed by me. Attending Attestation - Resident Resident Name: CesarRobles - ED Attending Attestation I have performed the following: I have examined & evaluated the patient, The case was reviewed & discussed with the resident, I agree w/resident's findings & plan, Exceptions are as noted - HPI HPI: 12/03/19 14:53 Patient is a 78 year old male with a significant past medical history of hypertension, arthritis, psoriasis, and atrial fibrillation, who presents to the ED with an injury to his right eye after a fall from earlier today. Patient stated he tripped on an object in his kitchen and fell hitting his head on the steps. Patient stated he was not feeling dizzy or lightheaded prior to falling. Patient denies: LOC, fever, chills, lightheadedness, any vision changes, nausea, vomiting, SOB, neck pain, chest pain, palpitations, abdominal pain, any urinary issues, lower extremity pain/edema, or any other related symptoms. Allergies: amiodarone - Physicial Exam PE: 12/03/19 15:23 See resident exam. - Medical Decision Making 12/03/19 16:23 78 M with head injury after mechanical fall. - CT head/c-spine/facial bones CTs unremarkable Pt is well appearing, with normal vitals. Clinically stable for DC at this time. I discussed the physical exam findings, ancillary test results and final diagnoses with the patient. I answered all of the patient's questions. The patient was satisfied with the care received and felt comfortable with the discharge plan and treatment plan. The patient agrees to follow up with the primary care physician within 24-72 hours. Discharge - Discharge Information Problems reviewed: Yes Clinical Impression/Diagnosis: Head injury Fall Qualifiers: Encounter type: initial encounter Qualified Code(s): W19.XXXA - Unspecified fall, initial encounter Traumatic hematoma of face Qualifiers: Encounter type: initial encounter Qualified Code(s): S00.83XA - Contusion of other part of head, initial encounter Condition: Stable Disposition: HOME - Follow up/Referral - Patient Discharge Instructions Patient Printed Discharge Instructions: How to Prevent Falls Additional Instructions: You were seen and evaluated at [place] following a fall. Your imaging was neg ative for fractures or bleeds. You may take over the counter pain medication such as Tylenol or Motrin for any related pain as directed on the package label. Follow up with your primary care doctor within 1 week for continued care and re- evaluation. Return to the ED for any new or concerning symptoms including but not limited to: Severe headache, nausea and vomiting, changes or pain with vision, difficulty walking, passing out or feeling like you may pass out. - Post Discharge Activity
[2019-12-03 16:38] VITALS: BP 136/78; PULSE 89; TEMP 98.6
== END 2019-12-03 16:40 | disposition home or self-care (01) ==
LOC: JER 12:36
DX: S00.83XA Contusion of other part of head, initial encounter (principal)
CPT/HCPCS: 70450-TC; 70480-TC; 70486-TC; 72125-TC; 99285-25